=== PATIENT | male | born 1985 | race Caucasian/White ===

== ENCOUNTER 2018-03-25 12:02 | Emergency (ER) | payer BC, OTHER ==
[~2018-03-25] VITALS: Ht 185.4 cm; Wt 81.8 kg
[~2018-03-25 12:02] MED LIST: MEDLIST
[2018-03-25 12:12] VITALS: TEMP 36.6; Ht 185.4 cm; Wt 81.8 kg
[2018-03-25 13:00] LABS: BASO % 0.5 %; BASO ABS # 0.03 K/uL (0-0.2); EOS % 0.3 %; EOS ABS # 0.02 K/uL (0-0.5); HEMATOCRIT 44.5 % (42-52); HEMOGLOBIN 15.8 g/dL (14.0-18.0); IG# 0.02 K/uL (0.00-0.02); LYMPH % 22.9 %; LYMPH ABS # 1.36 K/uL (1.2-3.4); MEAN CELL VOLUME 85.2 fL (80-100); MEAN CORPUSCULAR HEMOGLOBIN 30.3 pg (25-34); MEAN CORPUSCULAR HGB CONC 35.5 g/dl (32-36); MEAN PLATELET VOLUME 9.5 fL (7.4-10.4); MONO % 6.6 %; MONO ABS # 0.39 K/uL (0.11-0.59); NEUT % 69.4 %; NEUT ABS # 4.12 K/uL (1.4-6.5); PLATELET COUNT 202 K/uL (130-400); RED CELL DISTRIBUTION WIDTH CV 12.5 % (11.5-14.5); RED CELL DISTRIBUTION WIDTH SD 39.1 fL (36.4-46.3); WHITE BLOOD COUNT 5.94 K/uL (4.8-10.8)
[2018-03-25 13:12] LABS: PTT PATIENT 28.2 SECONDS (21.0-31.0)
[2018-03-25 13:18] LABS: ALBUMIN 4.7 gm/dl (3.4-5.0); CALCIUM 9.6 mg/dl (8.5-10.1); CREATININE 0.97 mg/dl (0.60-1.40); POTASSIUM 3.9 mmol/L (3.5-5.1); TOTAL PROTEIN 8.2 gm/dl (6.4-8.2)
--- NOTE | 2018-03-25 13:34 | DIAGNOSTIC IMAGING REPORT ---
ABDOMEN 2VIEW W/PA CHEST RTN HISTORY: 32 years-old Male LUQ ABDOMINAL PAIN acute left upper quadrant abdominal pain COMPARISON: None available TECHNIQUE: PA view of the chest with erect and supine views of the abdomen FINDINGS: Cardiomediastinal and hilar silhouettes are within normal limits. No pneumothorax, pleural effusion, focal airspace consolidation or overt pulmonary edema. The bones of the chest appear grossly intact. No pneumatosis or pneumoperitoneum. Bowel gas pattern is nonobstructive. No definite urolith. Moderate formed colonic stool noted. No fracture. IMPRESSION: 1. No acute process of the chest. 2. Nonobstructive bowel gas pattern without pneumoperitoneum. 3. Suggested constipation. The above report was generated using voice recognition software. It may contain grammatical, syntax or spelling errors. Electronically signed by: Austyn Purvis M.D. 03/25/2018 1:33 PM Dictated Date/Time: 03/25/2018 1:29 PM
[2018-03-25 14:57] VITALS: BP 136/89; PULSE 86; O2SAT 98
--- NOTE | 2018-03-25 16:23 | EMERGENCY ROOM VISIT NOTE ---
History First contact with patient: 12:15 Chief Complaint: ABDOMINAL PAIN Stated Complaint: STOMACH PAIN History of Present Illness The patient is a 32 year old male who presents to the Emergency Room with complaints of waxing and waning left upper quadrant pain since awakening this morning. The patient reports that at its worst, his pain is a 9 out of 10. On my exam, he rates his discomfort a 4 out of 10. The patient denies any nausea, vomiting or diarrhea. The patient reports that his stools have been quite firm lately. The patient also reports an extensive history of GERD since a child. He currently is not on a proton pump inhibitor. He does take Zantac on a frequent basis which helps with his reflux. The patient reports that he will get reflux approximately 3 times weekly. The patient has not noticed any pain radiating into the back, chest or neck. He denies any shortness of breath or chest pain. The patient has not experienced any nausea. He denies any urinary symptoms. Review of Systems 10 system review was performed and was negative except for pertinent positives and negatives as indicated in history of present illness Past Medical/Surgical History Medical Problems: (1) Alcohol Abuse-Unspec (2) Unilat Inguinal Hernia Family History Unremarkable Social History Smoking Status: Never Smoker Alcohol Use: occasionally Marital Status: single Housing Status: lives with family Occupation Status: employed Current/Historical Medications No Active Prescriptions or Reported Meds Physical Exam Vital Signs Date Time Temp Pulse Resp B/P (MAP) Pulse Ox O2 Delivery O2 Flow Rate FiO2 03/25/18 14:57 86 20 136/89 98 03/25/18 13:50 90 16 142/90 100 Room Air 03/25/18 12:12 36.6 95 20 134/90 98 Room Air Physical Exam CONSTITUTIONAL: Healthy and well nourished. Alert and oriented X 3 with positive affect. Patient does not appear in any significant distress on my exam. HEENT: Normocephalic, atraumatic. Pupils equal, round and reactive. No scleral icterus or conjunctival injection/pallor. NECK: Full active range of motion without discomfort. RESPIRATORY: Clear to auscultation bilaterally with no wheezing, crackles, rhonchi or stridor. CARDIOVASCULAR: Regular rate and rhythm with no murmurs, rubs or gallops. GASTROINTESTINAL: Bowel sounds present in all quadrants. Patient has mild left upper quadrant tenderness to palpation. No obvious focal tenderness to palpation over the right upper quadrant, right lower quadrant or left lower quadrant. No obvious hepatosplenomegaly. No rigidity, guarding or rebound. Negative CVA tenderness. MUSCULOSKELETAL: Full range of motion of all joints without discomfort. INTEGUMENTARY: No rash or other significant dermatologic conditions noted. HEMATOLOGIC: No ecchymosis or petechiae. NEUROLOGIC: No focal neurologic deficits noted. Medical Decision & Procedures ER Provider Diagnostic Interpretation: My interpretation of an ECG shows a normal sinus rhythm of 78 ST elevation or other conduction abnormalities. An abdomen obstruction series shows moderate stool burden. No obvious obstruction, free air or basilar lung consolidations noted. Radiologist report is as follows: ABDOMEN 2VIEW W/PA CHEST RTN HISTORY: 32 years-old Male LUQ ABDOMINAL PAIN acute left upper quadrant abdominal pain COMPARISON: None available TECHNIQUE: PA view of the chest with erect and supine views of the abdomen FINDINGS: Cardiomediastinal and hilar silhouettes are within normal limits. No pneumothorax, pleural effusion, focal airspace consolidation or overt pulmonary edema. The bones of the chest appear grossly intact. No pneumatosis or pneumoperitoneum. Bowel gas pattern is nonobstructive. No definite urolith. Moderate formed colonic stool noted. No fracture. IMPRESSION: 1. No acute process of the chest. 2. Nonobstructive bowel gas pattern without pneumoperitoneum. 3. Suggested constipation. Laboratory Results 03/25/18 12:45 Red Blood Count 5.22, Mean Corpuscular Volume 85.2, Mean Corpuscular Hemoglobin 30.3, Mean Corpuscular Hemoglobin Concent 35.5, Mean Platelet Volume 9.5, Neutrophils (%) (Auto) 69.4, Lymphocytes (%) (Auto) 22.9, Monocytes (%) (Auto) 6.6, Eosinophils (%) (Auto) 0.3, Basophils (%) (Auto) 0.5, Neutrophils # (Auto) 4.12, Lymphocytes # (Auto) 1.36, Monocytes # (Auto) 0.39, Eosinophils # (Auto) 0.02, Basophils # (Auto) 0.03 03/25/18 12:45 Test 03/25/18 12:45 03/25/18 13:40 White Blood Count 5.94 K/uL (4.8-10.8) Red Blood Count 5.22 M/uL (4.7-6.1) Hemoglobin 15.8 g/dL (14.0-18.0) Hematocrit 44.5 % (42-52) Mean Corpuscular Volume 85.2 fL (80-100) Mean Corpuscular Hemoglobin 30.3 pg (25-34) Mean Corpuscular Hemoglobin Concent 35.5 g/dl (32-36) Platelet Count 202 K/uL (130-400) Mean Platelet Volume 9.5 fL (7.4-10.4) Neutrophils (%) (Auto) 69.4 % Lymphocytes (%) (Auto) 22.9 % Monocytes (%) (Auto) 6.6 % Eosinophils (%) (Auto) 0.3 % Basophils (%) (Auto) 0.5 % Neutrophils # (Auto) 4.12 K/uL (1.4-6.5) Lymphocytes # (Auto) 1.36 K/uL (1.2-3.4) Monocytes # (Auto) 0.39 K/uL (0.11-0.59) Eosinophils # (Auto) 0.02 K/uL (0-0.5) Basophils # (Auto) 0.03 K/uL (0-0.2) RDW Standard Deviation 39.1 fL (36.4-46.3) RDW Coefficient of Variation 12.5 % (11.5-14.5) Immature Granulocyte % (Auto) 0.3 % Immature Granulocyte # (Auto) 0.02 K/uL (0.00-0.02) Prothrombin Time 10.6 SECONDS (9.0-12.0) Prothromb Time International Ratio 1.0 (0.9-1.1) Activated Partial Thromboplast Time 28.2 SECONDS (21.0-31.0) Partial Thromboplastin Ratio 1.1 Anion Gap 7.0 mmol/L (3-11) Est Creatinine Clear Calc Drug Dose 124.7 ml/min Estimated GFR () 120.1 Estimated GFR (Non- 103.6 BUN/Creatinine Ratio 9.3 (10-20) Calcium Level 9.6 mg/dl (8.5-10.1) Total Bilirubin 0.6 mg/dl (0.2-1) Direct Bilirubin 0.2 mg/dl (0-0.2) Aspartate Amino Transf (AST/SGOT) 16 U/L (15-37) Alanine Aminotransferase (ALT/SGPT) 21 U/L (12-78) Alkaline Phosphatase 56 U/L (45-117) Total Creatine Kinase 140 U/L (39-308) Total Protein 8.2 gm/dl (6.4-8.2) Albumin 4.7 gm/dl (3.4-5.0) Lipase 110 U/L (73-393) Urine Color YELLOW Urine Appearance CLEAR (CLEAR) Urine pH >= 9.0 (4.5-7.5) Urine Specific [place] 1.009 (1.000-1.030) Urine Protein NEG (NEG) Urine Glucose (UA) NEG (NEG) Urine Ketones NEG (NEG) Urine Occult Blood NEG (NEG) Urine Nitrite NEG (NEG) Urine Bilirubin NEG (NEG) Urine Urobilinogen NEG (NEG) Urine Leukocyte Esterase NEG (NEG) The above labs were reviewed and were grossly normal. Urinalysis is unremarkable. ED Course Patient history and physical exam were performed. Nurse's notes were reviewed. Vital signs were reviewed and were normal. IV access was established, and labs were drawn. The patient refused any analgesics or antiemetics. Labs were reviewed and were grossly normal. And abdomen obstruction series shows a moderate stool burden without evidence for obstruction, free air, lung consolidations or other concerning findings. Patient was advised that his history, clinical exam and findings on workup today are most suggestive of pain secondary to constipation. I did suggest trying magnesium citrate to purge the bowel. I also encouraged the patient to drink plenty of fluids, increase fiber diet and use stool softeners as needed for further treatment. Regarding the patient's chronic reflux, I did suggest that he follow-up with his PCP to discuss further workup and treatment. I did discuss the risks of untreated GERD given the frequency/chronic duration of his symptoms, and concern for chronic changes to the esophagus. The patient voiced understanding of all discharge instructions, and indicated that he would follow-up with the PCP for further management. The patient was instructed to return to the emergency department for any progressively worsening abdominal pain, vomiting, fever or other concerning symptoms. The patient was happy with plan of care, voiced understanding of all discharge instructions, and denied any pain at the conclusion of my exam. Medical Decision Case was discussed with Dr. Damon, ED attending physician, who agrees with workup and plan of care. History and findings today are most consistent with constipation. Laboratory and imaging studies are not consistent with pancreatitis, cholecystitis, hepatitis, bowel obstruction, UTI or surgical abdomen. Patient is afebrile and does not have any leukocytosis. Medication Reconcilliation Current Medication List: was personally reviewed by me Blood Pressure Screening Patient's blood pressure: Elevated blood pressure Blood pressure disposition: Elevated BP felt to be situational Impression Primary Impression: Recurrent left upper quadrant abdominal pain Additional Impressions: Constipation GERD (gastroesophageal reflux disease) Departure Information Dispostion Home / Self-Care Condition GOOD Prescriptions No Active Prescriptions or Reported Meds Forms Call Back Authorization, HOME CARE DOCUMENTATION FORM, IMPORTANT VISIT INFORMATION Patient Instructions My [employer] Additional Instructions Suggest drinking a bottle of magnesium citrate to purge bowel. Increase fiber in your diet, and remain well-hydrated. You may also use MiraLAX stool softener for additional relief. Follow-up with your family doctor to discuss further management and workup for your reflux. Return to the emergency department for any progressively worsening pain, vomiting or developing fever. Problem Qualifiers Additional Impressions: Constipation Constipation type: unspecified constipation type Qualified Codes: K59.00 - Constipation, unspecified GERD (gastroesophageal reflux disease) Esophagitis presence: esophagitis presence not specified Qualified Codes: K21.9 - Gastro-esophageal reflux disease without esophagitis
== END 2018-03-25 14:58 | disposition home or self-care (01) ==
LOC: C.EDB 12:03
DX: K59.00 Constipation, unspecified (principal); K21.9 Gastro-esophageal reflux disease without esophagitis; R03.0 Elevated blood-pressure reading, without diagnosis of hypertension; K40.90 Unilateral inguinal hernia, without obstruction or gangrene, not specified as recurrent; Z79.899 Other long term (current) drug therapy